=== PATIENT | female | born 1995 | race American Indian/Alaskan Native ===

== ENCOUNTER 2019-05-08 01:12 | Emergency (ER) | payer SELFPAY ==
[2019-05-08 01:20] VITALS: BP 134/90
[2019-05-08] MEDS ORDERED: IBUPROFEN PO ONE (02:47)
[2019-05-08] MEDS ORDERED: TYLENOL PO ONE (02:47)
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
[2019-05-08 04:46] LABS: HCG Qualitative,Urine Negative (Negative)
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
== END 2019-05-08 06:09 | disposition home or self-care (01) ==
LOC: ED 01:12
DX: S76.012A Strain of muscle, fascia and tendon of left hip, initial encounter (principal); S76.011A Strain of muscle, fascia and tendon of right hip, initial encounter; M62.838 Other muscle spasm; G44.319 Acute post-traumatic headache, not intractable; Z79.1 Long term (current) use of non-steroidal anti-inflammatories (NSAID); Z79.899 Other long term (current) drug therapy; V89.2XXA Person injured in unspecified motor-vehicle accident, traffic, initial encounter; Y93.89 Activity, other specified; Y92.488 Other paved roadways as the place of occurrence of the external cause; Y99.8 Other external cause status
CPT/HCPCS: 70450; 73521; 81025; 99284

== ENCOUNTER 2019-10-21 10:46 | Emergency (ER) | payer SELFPAY ==
[2019-10-21 12:08] VITALS: BP 126/78
--- NOTE | 2019-10-21 12:34 | Event Note ---
ED Screening Note Date of service: 10/21/19 Time: 12:30 ED Screening Note: 24 y o female presents with mid abd pain x 2 days and wanting a test denies urinary sx states she had a irregular cycle on the 10/12/19 stating she only had mild bleeding for half a day and it stopped pt states she took a preg test and it was positice but she is unsure She denies f/c/n/v/d or any other symptoms This initial assessment/diagnostic orders/clinical plan/treatment(s) is/are subject to change based on patients health status, clinical progression and re- assessment by fellow clinical providers in the ED. Further treatment and workup at subsequent clinical providers discretion. Patient/guardian urged not to elope from the ED as their condition may be serious if not clinically assessed and managed. Initial orders include: Pt presents with a non-medical emergency Examination is normal, Vital sign are stable Pt given information for clinics to follow up with pcp for further treatment and evaluation Also discussed strict return precautions in detail with pt who verbalized understanding
== END 2019-10-21 12:50 | disposition left against medical advice (07) ==
LOC: ED 10:46
DX: Z11.3 Encounter for screening for infections with a predominantly sexual mode of transmission (principal); Z53.21 Procedure and treatment not carried out due to patient leaving prior to being seen by health care provider

== ENCOUNTER 2019-11-20 05:43 | Emergency (ER) | payer OTHER ==
[2019-11-20 06:31] LABS: Basophils # (Auto) 0.1 K/mm3 (0.0-0.1); Basophils % (Auto) 0.9 % (0.0-1.8); Eosinophils # (Auto) 0.1 K/mm3 (0.0-0.4); Eosinophils % (Auto) 0.5 % (0.0-4.3); Hematocrit 37.1 % (30.3-42.9); Hemoglobin 13.2 gm/dl (10.1-14.3); Lymphocytes % (Auto) 26.6 % (13.4-35.0); Mean Corpuscular HGB Conc 36 % (30-34); Mean Corpuscular Volume 82 fl (79-97); Monocytes # (Auto) 0.6 K/mm3 (0.0-0.8); Monocytes % (Auto) 5.7 % (0.0-7.3); Platelet Count 369 K/mm3 (140-440); Red Blood Count 4.51 M/mm3 (3.65-5.03); Red Cell Distribution Width 13.3 % (13.2-15.2)
[2019-11-20 07:11] LABS: Bilirubin,Urine NEG (Negative); Blood,Urine LG (Negative); Color,Urine Yellow (Yellow); Mucus,Urine FEW /HPF; Protein,Urine <15 mg/dL mg/dL (Negative); Urobilinogen,Urine < 2.0 mg/dL (<2.0)
--- NOTE | 2019-11-20 07:53 | Ultrasound Report ---
ULTRASOUND OBSTETRIC Indication: preg, vag bleed Findings: There is a single, living intrauterine . [place]-rump length = 3.1 cm = 10 weeks, 0 day(s). heart rate is 167 beats per minute. The right ovary is unremarkable. There is a 1.4 cm cyst in the left ovary. At this time, the placenta is low-lying covering the cervical os Impression: Single, living intrauterine with estimated sonographic age of 10 weeks, 0 day(s). The placenta is low-lying covering the cervical os. This will need to be followed as progre sses. Signer Name: Jose Sousa MD Signed: 11/20/2019 7:49 AM Workstation Name: [id number]
--- NOTE | 2019-11-20 08:40 | Emergency Department Report ---
ED HPI - General Chief complaint: Vaginal Bleeding Stated complaint: VAGINAL BLEEDING Time Seen by Provider: 11/20/19 08:20 Source: patient Mode of arrival: Ambulatory Limitations: No Limitations - History of Present Illness Initial comments: This is a 24-year-old -0-0-2 with a last menstrual period of September 19, 2019 who presents to the ED at approx 10 weeks gestation with painless vaginal bleeding that started today this morning. Patient states that she went to the bathroom and so a little bit of blood when using the bathroom. Patient states that she does have a SUPERCHARGER MECHANIC and has an appointment with her SUPERCHARGER MECHANIC in 2 weeks. Patient states that bleeding is not ongoing it is intermittent. Patient states bleeding is resolved at the moment. patient is also a tobacco user. Patient denies fever/chills/nausea vomiting/abdominal pain/dysuria, chest pain or shortness of breath. MD Complaint: vaginal bleeding - Related Data Previous Rx's Medication Instructions Recorded Last Taken Type Acetaminophen/Codeine [Tylenol 1 tab PO Q6H PRN #12 tab 05/08/19 Unknown Rx /Codeine # 3 tab] Baclofen 20 mg PO Q8H PRN #15 tablet 05/08/19 Unknown Rx Ibuprofen [Motrin] 600 mg PO Q8H PRN #20 tablet 05/08/19 Unknown Rx Allergies Allergy/AdvReac Type Severity Reaction Status Date / Time No Known Allergies Allergy Unverified 05/08/19 04:20 ED Review of Systems ROS: Stated complaint: VAGINAL BLEEDING Other details as noted in HPI Comment: All other systems reviewed and negative ED Past Medical Hx - Past Medical History Previous Medical History?: No - Surgical History Past Surgical History?: Yes Additional Surgical History: x1 - Social History Smoking Status: Never Smoker Substance Use Type: Marijuana - Medications Home Medications: Home Medications Medication Instructions Recorded Confirmed Last Taken Type Acetaminophen/Codeine [Tylenol 1 tab PO Q6H PRN #12 tab 05/08/19 Unknown Rx /Codeine # 3 tab] Baclofen 20 mg PO Q8H PRN #15 tablet 05/08/19 Unknown Rx Ibuprofen [Motrin] 600 mg PO Q8H PRN #20 tablet 05/08/19 Unknown Rx ED Physical Exam - General Limitations: No Limitations General appearance: alert, in no apparent distress - Head Head exam: Present: atraumatic, normocephalic - Eye Eye exam: Present: normal appearance - ENT ENT exam: Present: mucous membranes moist - Neck Neck exam: Present: normal inspection - Respiratory Respiratory exam: Present: normal lung sounds bilaterally. Absent: respiratory distress - Cardiovascular Cardiovascular Exam: Present: regular rate, normal rhythm. Absent: systolic murmur, diastolic murmur, rubs, gallop - GI/Abdominal GI/Abdominal exam: Present: soft, normal bowel sounds. Absent: distended, tenderness, guarding, mass, bruit - Speculum exam: Present: other (Not performed due to risk of hemorrhage or worsening in bleeding) - Extremities Exam Extremities exam: Present: normal inspection - Back Exam Back exam: Present: normal inspection, full ROM. Absent: CVA tenderness (R), CVA tenderness (L) - Neurological Exam Neurological exam: Present: alert, oriented X3, normal gait - Psychiatric Psychiatric exam: Present: normal affect, normal mood - Skin Skin exam: Present: warm, dry, intact, normal color. Absent: rash ED Course Vital Signs 11/20/19 11/20/19 11/20/19 05:48 08:01 08:02 Temperature 98.4 F Pulse Rate 128 H 79 Respiratory 12 18 20 Rate Blood Pressure 147/93 O2 Sat by Pulse 98 100 100 Oximetry ED Medical Decision Making - Lab Data Result diagrams: 11/20/19 06:16 Laboratory Last Values WBC 11.1 K/mm3 (4.5-11.0) H 11/20/19 06:16 RBC 4.51 M/mm3 (3.65-5.03) 11/20/19 06:16 Hgb 13.2 gm/dl (10.1-14.3) 11/20/19 06:16 Hct 37.1 % (30.3-42.9) 11/20/19 06:16 MCV 82 fl (79-97) 11/20/19 06:16 MCH 29 pg (28-32) 11/20/19 06:16 MCHC 36 % (30-34) H 11/20/19 06:16 RDW 13.3 % (13.2-15.2) 11/20/19 06:16 Plt Count 369 K/mm3 (140-440) 11/20/19 06:16 Lymph % (Auto) 26.6 % (13.4-35.0) 11/20/19 06:16 [place] % (Auto) 5.7 % (0.0-7.3) 11/20/19 06:16 Eos % (Auto) 0.5 % (0.0-4.3) 11/20/19 06:16 Baso % (Auto) 0.9 % (0.0-1.8) 11/20/19 06:16 Lymph # 3.0 K/mm3 (1.2-5.4) 11/20/19 06:16 [place] # 0.6 K/mm3 (0.0-0.8) 11/20/19 06:16 Eos # 0.1 K/mm3 (0.0-0.4) 11/20/19 06:16 Baso # 0.1 K/mm3 (0.0-0.1) 11/20/19 06:16 Seg Neutrophils % 66.3 % (40.0-70.0) 11/20/19 06:16 Seg Neutrophils # 7.4 K/mm3 (1.8-7.7) 11/20/19 06:16 HCG, Quant 79110 mIU/mL (0-4) H 11/20/19 06:16 Urine Color Yellow (Yellow) 11/20/19 06:00 Urine Turbidity Clear (Clear) 11/20/19 06:00 Urine pH 6.0 (5.0-7.0) 11/20/19 06:00 Ur Specific [place] 1.016 (1.003-1.030) 11/20/19 06:00 Urine Protein <15 mg/dl mg/dL (Negative) 11/20/19 06:00 Urine Glucose (UA) Neg mg/dL (Negative) 11/20/19 06:00 Urine Ketones 20 mg/dL (Negative) 11/20/19 06:00 Urine Blood Lg (Negative) 11/20/19 06:00 Urine Nitrite Neg (Negative) 11/20/19 06:00 Urine Bilirubin Neg (Negative) 11/20/19 06:00 Urine Urobilinogen < 2.0 mg/dL (<2.0) 11/20/19 06:00 Ur Leukocyte Esterase Tr (Negative) 11/20/19 06:00 Urine WBC (Auto) 7.0 /HPF (0.0-6.0) H 11/20/19 06:00 Urine RBC (Auto) 121.0 /HPF (0.0-6.0) 11/20/19 06:00 U Epithel Cells (Auto) 1.0 /HPF (0-13.0) 11/20/19 06:00 Urine Mucus Few /HPF 11/20/19 06:00 - Radiology Data Radiology results: report reviewed, image reviewed ULTRASOUND OBSTETRIC Indication: preg, vag bleed Findings: There is a single, living intrauterine . [place]-rump length = 3.1 cm = 10 weeks, 0 day(s). heart rate is 167 beats per minute. The right ovary is unremarkable. There is a 1.4 cm cyst in the left ovary. At this time, the placenta is low-lying covering the cervical os Impression: Single, living intrauterine with estimated sonographic age of 10 weeks, 0 day(s). The placenta is low-lying covering the cervical os. This will need to be followed as progresses. Signer Name: Jose Sousa MD Signed: 11/20/2019 7:49 AM Workstation Name: [id number] Transcribed By: SS Dictated By: Jose Sousa MD Electronically Authenticated By: Jose Sousa MD Signed Date/Time: 11/20/19 0749 - Medical Decision Making 24-year-old female presents to ED with vaginal bleeding and secondary to low-lying placenta otherwise known as placenta previa ED course: Pt received ultra sound, CBC, urinalysis, test and quantitative ED All labs within normal limits, quantitative elevated matching gestation age Patient states that bleeding is resolved when she is went into the bathroom to check Patient is followed by an SUPERCHARGER MECHANIC which she is unable to recall at the time of examination Patient states she has has an appointment with her OB in 1 week Ultrasound shows single intrauterine gestation at 10 weeks. See reported above Vital signs normalized patient is in no acute distress. I discussed with the patient to follow-up with her SUPERCHARGER MECHANIC. Referrals given as well. I discussed all labs and ultrasound findings with the patient. I discussed with the patient that he if bleeding worsens or new symptoms develop to return to ED immediately Critical care attestation.: If time is entered above; I have spent that time in minutes in the direct care of this critically ill patient, excluding procedure time. ED Disposition Clinical Impression: Vaginal bleeding during , Placenta previa antepartum in first trimester Disposition: DC- TO HOME OR SELFCARE Is pt being admited?: No Does the pt Need Aspirin: No Condition: Stable Instructions: Placenta Previa (ED), (ED) Additional Instructions: Make sure to follow up with the SUPERCHARGER MECHANIC as discussed. Continue taking your vitamins as advised by her OB, s stop tobacco use as this may be dangerous to the healthy baby Avoid intercourse/sex until otherwise advised by your OB If you have any worsening symptoms or develop new symptoms please return to ED immediately. Referrals: [facility] [Provider Group] - 3-5 Days [facility] [Provider Group] - 3-5 Days [facility] [Provider Group] - 3-5 Days Forms: Accompanied Note, Work/School Release Form(ED) Time of Disposition: 08:47
[2019-11-20 09:14] VITALS: BP 124/78
== END 2019-11-20 09:13 | disposition home or self-care (01) ==
LOC: ED 05:43
DX: O44.01 Complete placenta previa NOS or without hemorrhage, first trimester (principal); Z3A.10 10 weeks gestation of pregnancy; F12.10 Cannabis abuse, uncomplicated; Z98.890 Other specified postprocedural states
CPT/HCPCS: 36415; 76801; 81001; 84702; 85025; 86900; 86901

== ENCOUNTER 2021-12-27 20:54 | Emergency (ER) | payer SELFPAY ==
[2021-12-27 21:14] VITALS: BP 129/81
[2021-12-27 21:36] LABS: Basophils % (Auto) 0.3 % (0.0-1.8); Eosinophils # (Auto) 0.4 K/mm3 (0.0-0.4); Eosinophils % (Auto) 4.5 % (0.0-4.3); Lymphocytes # (Auto) 2.5 K/mm3 (1.2-5.4); Lymphocytes % (Auto) 26.2 % (13.4-35.0); Mean Corpuscular HGB Conc 34 % (30-34); Mean Corpuscular Volume 84 fl (79-97); Monocytes # (Auto) 0.9 K/mm3 (0.0-0.8); Monocytes % (Auto) 9.4 % (0.0-7.3); Platelet Count 398 K/mm3 (140-440); Red Blood Count 4.53 M/mm3 (3.65-5.03); Red Cell Distribution Width 13.9 % (13.2-15.2)
[2021-12-27 21:43] LABS: Bilirubin,Urine NEG (Negative); Blood,Urine NEG (Negative); Color,Urine Yellow (Yellow); Mucus,Urine FEW /HPF; Urobilinogen,Urine < 2.0 mg/dL (<2.0); WBC,Urine < 1.0 /HPF (0.0-6.0)
[2021-12-27 21:58] LABS: Alanine Aminotransferase 17 units/L (7-56); Albumin 4.2 g/dL (3.9-5); BUN/Creatinine Ratio 17; Blood Urea Nitrogen 17 mg/dL (7-17); Hemolysis Index 12
== END 2021-12-28 03:26 | disposition left against medical advice (07) ==
LOC: ED 20:54
DX: R10.9 Unspecified abdominal pain (principal); Z53.21 Procedure and treatment not carried out due to patient leaving prior to being seen by health care provider
CPT/HCPCS: 36415; 80053; 81001; 84703; 85025

== ENCOUNTER 2021-12-28 17:47 | Emergency (ER) | payer SELFPAY ==
[2021-12-28 18:58] VITALS: BP 148/89
== END 2021-12-28 20:44 | disposition left against medical advice (07) ==
LOC: ED 17:47
DX: O26.90 Pregnancy related conditions, unspecified, unspecified trimester (principal); R52 Pain, unspecified; Z53.21 Procedure and treatment not carried out due to patient leaving prior to being seen by health care provider; Z3A.00 Weeks of gestation of pregnancy not specified

== ENCOUNTER 2022-05-31 14:12 | Emergency (ER) | payer SELFPAY ==
--- NOTE | 2022-05-31 19:38 | Emergency Department Report ---
ED Female HPI - General Chief complaint: Urogenital-Male Stated complaint: VAGINAL PAIN/CHECK UP Time Seen by Provider: 05/31/22 19:21 Source: patient Mode of arrival: Ambulatory Limitations: No Limitations - History of Present Illness Initial comments: 27-year-old female sexually active presents to the emergency department for possible STD. Patient reports she has been having burning in vagina pain x2 days. Patient is also here with her partner and she wants to make sure she does not have an STD. She denies hematuria, she denies abdominal pain, no chest pain, no shortness of breath, no weakness dizziness or headache, she denies being . MD Complaint: vaginal discharge, dysuria, possible STD Radiation: non-radiating Consistency: constant Improves with: none Worsens with: urination Associated Symptoms: vaginal discharge, dysuria. denies: vaginal bleeding, abdominal pain, nausea/vomiting, fever/chills, headaches, loss of appetite, hematuria, rash, seizure, shortness of breath, syncope, weakness - Related Data Previous Rx's Medication Instructions Recorded Last Taken Type Acetaminophen/Codeine [Tylenol 1 tab PO Q6H PRN #12 tab 05/08/19 Unknown Rx /Codeine # 3 tab] Baclofen 20 mg PO Q8H PRN #15 tablet 05/08/19 Unknown Rx Ibuprofen [Motrin] 600 mg PO Q8H PRN #20 tablet 05/08/19 Unknown Rx Allergies Allergy/AdvReac Type Severity Reaction Status Date / Time No Known Allergies Allergy Unverified 05/08/19 04:20 ED Review of Systems ROS: Stated complaint: VAGINAL PAIN/CHECK UP Other details as noted in HPI Constitutional: no symptoms reported Eyes: as per HPI ENT: as per HPI Respiratory: no symptoms reported Cardiovascular: denies: chest pain, palpitations Gastrointestinal: denies: abdominal pain, nausea, vomiting, diarrhea Musculoskeletal: as per HPI. denies: back pain Skin: denies: rash Neurological: denies: headache, numbness, paresthesias ED Past Medical Hx - Past Medical History Hx Hypertension: Yes Hx Diabetes: No Hx Deep Vein Thrombosis: No Hx Renal Disease: No Hx Sickle Cell Disease: No Hx Seizures: No Hx Asthma: No Hx HIV: No - Surgical History Additional Surgical History: x1 - Social History Smoking Status: Former Smoker - Medications Home Medications: Home Medications Medication Instructions Recorded Confirmed Last Taken Type Acetaminophen/Codeine [Tylenol 1 tab PO Q6H PRN #12 tab 05/08/19 Unknown Rx /Codeine # 3 tab] Baclofen 20 mg PO Q8H PRN #15 tablet 05/08/19 Unknown Rx Ibuprofen [Motrin] 600 mg PO Q8H PRN #20 tablet 05/08/19 Unknown Rx ED Physical Exam - General Limitations: No Limitations General appearance: alert, in no apparent distress - Head Head exam: Present: atraumatic, normocephalic - Eye Eye exam: Present: normal appearance, PERRL Pupils: Present: normal accommodation - ENT ENT exam: Present: normal exam, normal orophraynx - Neck Neck exam: Present: normal inspection - Respiratory Respiratory exam: Present: normal lung sounds bilaterally. Absent: respiratory distress, wheezes - Cardiovascular Cardiovascular Exam: Present: regular rate, normal rhythm - GI/Abdominal GI/Abdominal exam: Absent: soft, distended, tenderness - Extremities Exam Extremities exam: Present: normal inspection, full ROM - Back Exam Back exam: Present: normal inspection, full ROM - Neurological Exam Neurological exam: Present: alert, oriented X3, CN II-XII intact, normal gait. Absent: motor sensory deficit - Psychiatric Psychiatric exam: Present: normal affect, normal mood - Skin Skin exam: Present: warm, dry, intact, normal color ED Course Vital Signs 05/31/22 15:08 Temperature 98.5 F Pulse Rate 73 Respiratory 18 Rate Blood Pressure 108/71 [Left] O2 Sat by Pulse 99 Oximetry ED Medical Decision Making - Medical Decision Making 27-year-old female presents to the ER with her partner for STD testing. Symptoms include vaginal discharge, genital pain with dysuria. Urinalysis and wet prep did not show any sign of an acute infection. However patient empirically treated for gonorrhea and chlamydia, cultures are pending Cultures pending, will discharge patient with OB referral for further evaluation. Vital signs are stable, she is ambulating steadily. Tolerating oral intake without vomiting Patient remained stable nontoxic-appearing, afebrile, ambulating steadily without assistance. Gone over ED findings with patient as well as plan for follow-up. Also discussed return precautions with patient, all questions and concerns addressed. Patient is stable to be discharged follow-up outpatient. Audio voice dictation device used, hence the chart might contain some dictation errors, mispronunciations, wrong spelling and wrong verbiage Critical care attestation.: If time is entered above; I have spent that time in minutes in the direct care of this critically ill patient, excluding procedure time. ED Disposition Clinical Impression: Vaginitis, Encounter for assessment of STD exposure Disposition: HOME / SELF CARE / HOMELESS Is pt being admited?: No Does the pt Need Aspirin: No Condition: Stable Instructions: Vaginitis, Safe Sex Referrals: OTTO ERNST MD [Staff Physician] - 3-5 Days
[2022-05-31 19:45] LABS: Mucus,Urine FEW /HPF
[2022-05-31 19:52] LABS: Color,Urine Straw (Yellow)
[2022-05-31 19:53] LABS: HCG Qualitative,Urine Negative (Negative)
[2022-05-31] MEDS ORDERED: LIDOCAINE-MPF (1%) 10 MG/1 ML VIAL 5 ML INFILTRATI ONE (21:00)
[2022-05-31] MEDS ORDERED: AZITHROMYCIN 1 GM ORAL PWDR PACKET PO ONE (21:00)
[2022-05-31 21:26] VITALS: BP 117/76
== END 2022-06-01 18:53 | disposition home or self-care (01) ==
LOC: ED 14:12
DX: Z11.3 Encounter for screening for infections with a predominantly sexual mode of transmission (principal); N76.0 Acute vaginitis; Z79.899 Other long term (current) drug therapy
CPT/HCPCS: 81001; 81025; 87210; 87591; 96372; 99283; J0696; J3490; 87116